=== PATIENT | male | born 1970 | race Caucasian/White ===

== ENCOUNTER 2020-07-04 22:10 | Inpatient (IN) | payer SELFPAY ==
[~2020-07-04] VITALS: Ht 165.1 cm; Wt 96.3 kg
[2020-07-04] MEDS ORDERED: IBUPROFEN 600MG TABLET PO STA (22:47)
[2020-07-04] MEDS ORDERED: SODIUM CHLORIDE 0.9% 1,000 ML IV ONE (22:47)
[2020-07-04 23:16] LABS: CLARITY URINE CLEAR (CLEAR); COLOR URINE DARK YELLOW (YELLOW); KETONES URINE TRACE (NEGATIVE); LEUKOCYTE ESTERASE URINE TRACE (NEGATIVE); NITRITE URINE NEGATIVE (NEGATIVE); OCCULT BLOOD URINE NEGATIVE (NEGATIVE); PH URINE 7.5 (4.5-8.0); PROTEIN URINE 2+ (NEGATIVE); SPECIFIC GRAVITY URINE 1.029 (1.005-1.030)
[2020-07-04] MEDS ORDERED: PIPERACILLIN/TAZOBACTAM 3.375GM/50ML PREMIX IV NR (23:45)
[2020-07-04] MEDS ORDERED: VANCOMYCIN 1 G PREMIX 200 ML IV SCH (23:45)
[2020-07-05 00:47] LABS: BASOPHILS % 0.2 % (0.0-2.0); EOSINOPHILS % 0.3 % (0.0-5.0); HEMATOCRIT. 30.7 % (42.0-52.0); HEMOGLOBIN. 10.7 g/dL (14.0-18.0); LYMPHOCYTES % 8.2 % (20.0-50.0); MEAN CORPUSCULAR VOLUME 91.8 fL (80.0-94.0); MEAN PLATELET VOLUME 7.9 fl (7.4-10.4); MONOCYTES % 11.4 % (2.0-8.0); NEUTROPHILS % 79.9 % (40.0-76.0); PLATELET 147 x1000/uL (130-400); RED BLOOD CELL COUNT 3.34 mill/uL (4.7-6.1); RED CELL DISTRIBUTION WIDTH 14.5 % (11.6-14.6)
[2020-07-05 00:56] LABS: PROTHROMBIN TIME 10.1 sec (9.6-11.0)
[2020-07-05 00:57] LABS: CHLORIDE 99 mEq/L (98-107)
[2020-07-05] MEDS ORDERED: POTASSIUM CHLORIDE INJ 40 MEQ in DEXT 5% WATER 250 ML IV ONE (01:30)
[2020-07-05] MEDS ORDERED: SODIUM CHLORIDE 0.9% 1,000 ML IV ONE (02:30)
[2020-07-05] MEDS ORDERED: ONDANSETRON HCL 4MG/2ML INJ IV ONE (02:30)
[2020-07-05] MEDS ORDERED: MORPHINE SULFATE 4 MG/ML CPJ (NOT FOR IM USE) IV ONE (02:30)
[2020-07-05 06:37] VITALS: BP_SYST 120
[2020-07-05 06:45] VITALS: BP 120/90
[2020-07-05] MEDS ORDERED: MORPHINE SULFATE 2 MG/ML CPJ (NOT FOR IM USE) IV PRN (08:45)
[2020-07-05] MEDS ORDERED: CLONIDINE 0.1MG TABLET PO PRN (08:45)
[2020-07-05] MEDS ORDERED: DIPHENHYDRAMINE 50MG/ML VIAL IV PRN (08:45)
[2020-07-05] MEDS ORDERED: PIPERACILLIN/TAZ 3.375G PREMIX 50 ML IV SCH (08:45)
[2020-07-05] MEDS ORDERED: ONDANSETRON HCL 4MG/2ML INJ IV PRN (08:45)
[2020-07-05] MEDS ORDERED: DEXTROSE 50% WATER 50ML SYRINGE IV PRN (09:00)
[2020-07-05] MEDS ORDERED: CLINDAMYCIN 300 MG in DEXTROSE 5% WATER 50 ML IV SCH (09:00)
[2020-07-05] MEDS ORDERED: METRONIDAZOLE 500 MG PREMIX 100 ML IV SCH (09:15)
[2020-07-05 09:37] VITALS: BP 142/86
[2020-07-05 09:49] LABS: PHOSPHORUS 2.2 mg/dL (2.5-4.9)
[2020-07-05] MEDS: PIPERACILLIN/TAZOBACTAM 3.375 G in DEXT 5% WATER 100 ML IV SCH ×2 (10:00→17:27)
[2020-07-05] MEDS: SODIUM CHLORIDE 0.9% 1,000 ML IV SCH ×2 (10:21→20:59)
[2020-07-05] MEDS: BLOOD SUGAR DIAGNOSTIC STRIP TEST SCH ×3 (11:53→20:49)
[2020-07-05] MEDS: VANCOMYCIN 1500MG in DEXTROSE 5% WATER 250ML IV SCH (11:56)
[2020-07-05] MEDS: INSULIN LISPRO 100 UNITS/ML SUBCUT SCH ×3 (11:57→20:49)
[2020-07-05] MEDS: ACETAMINOPHEN 325MG TABLET PO PRN ×2 (11:57→23:03)
[2020-07-05 12:00] VITALS: BP 132/79
[2020-07-05] MEDS: METRONIDAZOLE 500 MG PREMIX 100 ML IV SCH ×2 (14:00→21:01)
[2020-07-05] MEDS: CLINDAMYCIN 300 MG in DEXTROSE 5% WATER 50 ML IV SCH ×2 (14:00→21:01)
[2020-07-05 16:00] VITALS: BP 144/85
[2020-07-05 20:00] VITALS: BP 139/79
[2020-07-06] VITALS (7 sets, daily range): BP systolic 117–158; BP diastolic 59–92
[2020-07-06] MEDS: VANCOMYCIN 1500MG in DEXTROSE 5% WATER 250ML IV SCH ×2 (00:19→11:51)
[2020-07-06] MEDS: PIPERACILLIN/TAZOBACTAM 3.375 G in DEXT 5% WATER 100 ML IV SCH ×3 (02:17→18:13)
[2020-07-06] MEDS: ACETAMINOPHEN 325MG TABLET PO PRN ×2 (03:05→22:03)
[2020-07-06] MEDS: CLINDAMYCIN 300 MG in DEXTROSE 5% WATER 50 ML IV SCH ×3 (05:00→22:46)
[2020-07-06] MEDS: METRONIDAZOLE 500 MG PREMIX 100 ML IV SCH ×3 (05:46→21:33)
[2020-07-06 06:15] LABS: BASOPHILS % 0.2 % (0.0-2.0); EOSINOPHILS % 0.5 % (0.0-5.0); HEMATOCRIT. 31.1 % (42.0-52.0); HEMOGLOBIN. 10.5 g/dL (14.0-18.0); LYMPHOCYTES % 10.2 % (20.0-50.0); MEAN CORPUSCULAR HEMOGLOBIN 31.2 pg (28.0-32.0); MEAN PLATELET VOLUME 7.4 fl (7.4-10.4); MONOCYTES % 14.2 % (2.0-8.0); NEUTROPHILS % 74.9 % (40.0-76.0); PLATELET 207 x1000/uL (130-400); RED BLOOD CELL COUNT 3.37 mill/uL (4.7-6.1); RED CELL DISTRIBUTION WIDTH 14.6 % (11.6-14.6)
[2020-07-06 06:39] LABS: CHLORIDE 103 mEq/L (98-107)
[2020-07-06 06:48] LABS: LDL CHOLESTEROL 155 mg/dL (5-100)
[2020-07-06 06:49] LABS: HDL CHOLESTEROL 40 mg/dL (40-59)
[2020-07-06] MEDS: BLOOD SUGAR DIAGNOSTIC STRIP TEST SCH ×4 (06:55→21:26)
[2020-07-06] MEDS: INSULIN LISPRO 100 UNITS/ML SUBCUT SCH ×4 (07:24→21:33)
[2020-07-06] MEDS: SODIUM CHLORIDE 0.9% 1,000 ML IV SCH (12:41)
[2020-07-06] MEDS ORDERED: POTASSIUM CHLORIDE 20MEQ TABLET SR PO NR (15:39)
[2020-07-06] MEDS ORDERED: POTASSIUM CHLORIDE INJ 40 MEQ in DEXT 5% WATER 500 ML IV NR (17:30)
[2020-07-07] VITALS: BP 120/70
[2020-07-07] MEDS: VANCOMYCIN 1500MG in DEXTROSE 5% WATER 250ML IV SCH ×2 (00:11→12:00)
[2020-07-07] MEDS: SODIUM CHLORIDE 0.9% 1,000 ML IV SCH ×2 (00:33→14:42)
[2020-07-07] MEDS: PIPERACILLIN/TAZOBACTAM 3.375 G in DEXT 5% WATER 100 ML IV SCH ×3 (01:48→18:00)
[2020-07-07] MEDS: METRONIDAZOLE 500 MG PREMIX 100 ML IV SCH ×2 (05:25→14:00)
[2020-07-07] MEDS: CLINDAMYCIN 300 MG in DEXTROSE 5% WATER 50 ML IV SCH ×2 (05:27→14:42)
[2020-07-07] MEDS: BLOOD SUGAR DIAGNOSTIC STRIP TEST SCH ×4 (06:49→21:19)
[2020-07-07 07:31] LABS: HEMATOCRIT. 33.2 % (42.0-52.0); HEMOGLOBIN. 11.3 g/dL (14.0-18.0); MEAN CORPUSCULAR HEMOGLOBIN 31.5 pg (28.0-32.0); MEAN CORPUSCULAR VOLUME 92.6 fL (80.0-94.0); MEAN PLATELET VOLUME 7.2 fl (7.4-10.4); PLATELET 321 x1000/uL (130-400); RED BLOOD CELL COUNT 3.59 mill/uL (4.7-6.1); RED CELL DISTRIBUTION WIDTH 14.9 % (11.6-14.6)
[2020-07-07] MEDS: INSULIN LISPRO 100 UNITS/ML SUBCUT SCH ×4 (07:50→21:35)
[2020-07-07 08:00] VITALS: BP 137/85
[2020-07-07 08:30] LABS: CHLORIDE 105 mEq/L (98-107)
[2020-07-07] MEDS ORDERED: GENTAMICIN SULF 40MG/ML 2ML VIAL ONE (14:18)
[2020-07-07] MEDS ORDERED: BACITRACIN 50,000 UNITS/VIAL ONE (14:19)
[2020-07-07 16:13] VITALS: BP 120/75
[2020-07-07] MEDS ORDERED: MIDAZOLAM HCL 2 MG/2 ML VIAL ONE (16:19)
[2020-07-07] MEDS ORDERED: PROPOFOL 200MG/20ML VIAL IV ONE ×2 (16:19→16:53)
[2020-07-07] MEDS ORDERED: FENTANYL CITRATE/PF 50MCG/ML 2ML VIAL ONE ×2 (16:19→16:53)
[2020-07-07] MEDS ORDERED: ONDANSETRON HCL 4MG/2ML INJ ONE (16:52)
[2020-07-07] MEDS ORDERED: DEXAMETHASONE 4MG/ML 1ML VIAL ONE (16:52)
[2020-07-07] MEDS ORDERED: LABETALOL 5MG/ML SYR 20 MG/4 ML SYRINGE IV PRN (17:15)
[2020-07-07] MEDS ORDERED: ONDANSETRON HCL 4MG/2ML INJ IV PRN (17:15)
[2020-07-07] MEDS ORDERED: MEPERIDINE HCL/PF 25MG/ML CPJ IV PRN (17:15)
[2020-07-07] MEDS: HYDROMORPHONE HCL/PF 2MG/ML CPJ IV PRN ×2 (17:38→17:49)
[2020-07-07 20:00] VITALS: BP 125/80
[2020-07-07 21:51] LABS: PLATELET ESTIMATE NORMAL
[2020-07-08] VITALS: BP 111/60
[2020-07-08] MEDS: VANCOMYCIN 1500MG in DEXTROSE 5% WATER 250ML IV SCH ×2 (00:55→13:54)
[2020-07-08] MEDS: PIPERACILLIN/TAZOBACTAM 3.375 G in DEXT 5% WATER 100 ML IV SCH ×3 (01:28→18:28)
[2020-07-08] MEDS: SODIUM CHLORIDE 0.9% 1,000 ML IV SCH ×2 (02:33→16:33)
[2020-07-08 04:00] VITALS: BP 128/87
[2020-07-08 04:12] LABS: NEISSERIA GONORRHOEAE NAA Negative (Negative)
[2020-07-08 06:33] LABS: HEMATOCRIT. 34.3 % (42.0-52.0); HEMOGLOBIN. 11.4 g/dL (14.0-18.0); MEAN CORPUSCULAR HEMOGLOBIN 31.1 pg (28.0-32.0); MEAN CORPUSCULAR VOLUME 93.6 fL (80.0-94.0); PLATELET 467 x1000/uL (130-400); RED BLOOD CELL COUNT 3.66 mill/uL (4.7-6.1); RED CELL DISTRIBUTION WIDTH 14.8 % (11.6-14.6)
[2020-07-08 06:48] LABS: CHLORIDE 103 mEq/L (98-107)
[2020-07-08 08:00] VITALS: BP 130/83
[2020-07-08] MEDS: BLOOD SUGAR DIAGNOSTIC STRIP TEST SCH ×4 (08:15→21:00)
[2020-07-08] MEDS: INSULIN LISPRO 100 UNITS/ML SUBCUT SCH ×4 (09:14→21:00)
[2020-07-08 12:00] VITALS: BP 104/76
[2020-07-08 16:00] VITALS: BP 117/71
[2020-07-08 18:19] LABS: PLATELET ESTIMATE SLIGHTLY INCREASED
[2020-07-08 20:00] VITALS: BP 145/89
[2020-07-09] VITALS: BP 120/80
[2020-07-09] MEDS: VANCOMYCIN 1500MG in DEXTROSE 5% WATER 250ML IV SCH (00:19)
[2020-07-09] MEDS: SODIUM CHLORIDE 0.9% 1,000 ML IV SCH ×2 (00:19→21:01)
[2020-07-09] MEDS: PIPERACILLIN/TAZOBACTAM 3.375 G in DEXT 5% WATER 100 ML IV SCH ×3 (01:02→18:28)
[2020-07-09] MEDS: ACETAMINOPHEN 325MG TABLET PO PRN ×3 (01:02→21:01)
[2020-07-09 04:00] VITALS: BP 118/75
[2020-07-09 06:14] LABS: CHLORIDE 106 mEq/L (98-107)
[2020-07-09] MEDS: BLOOD SUGAR DIAGNOSTIC STRIP TEST SCH ×4 (06:29→21:00)
[2020-07-09] MEDS: INSULIN LISPRO 100 UNITS/ML SUBCUT SCH ×4 (06:29→21:00)
[2020-07-09 06:52] LABS: HEMATOCRIT. 32.5 % (42.0-52.0); HEMOGLOBIN. 10.8 g/dL (14.0-18.0); MEAN CORPUSCULAR HEMOGLOBIN 31.1 pg (28.0-32.0); MEAN CORPUSCULAR VOLUME 93.7 fL (80.0-94.0); MEAN PLATELET VOLUME 6.9 fl (7.4-10.4); PLATELET 537 x1000/uL (130-400); RED BLOOD CELL COUNT 3.47 mill/uL (4.7-6.1)
[2020-07-09 08:00] VITALS: BP 124/80
[2020-07-09] MEDS: SODIUM HYPOCHLORITE 0.125% 473ML SOLUTION TOP SCH (11:39)
[2020-07-09 12:00] VITALS: BP 127/86
[2020-07-09 16:00] VITALS: BP 125/83
[2020-07-09 18:13] LABS: PLATELET ESTIMATE INCREASED
[2020-07-09 20:00] VITALS: BP 145/84
[2020-07-10] VITALS: BP 135/70
[2020-07-10] MEDS: PIPERACILLIN/TAZOBACTAM 3.375 G in DEXT 5% WATER 100 ML IV SCH (01:12)
[2020-07-10 04:00] VITALS: BP 155/80
[2020-07-10] MEDS: ACETAMINOPHEN 325MG TABLET PO PRN ×2 (04:04→19:27)
[2020-07-10 06:30] LABS: HEMOGLOBIN. 11.4 g/dL (14.0-18.0); MEAN CORPUSCULAR HEMOGLOBIN 31.9 pg (28.0-32.0); MEAN CORPUSCULAR VOLUME 92.8 fL (80.0-94.0); MEAN PLATELET VOLUME 6.7 fl (7.4-10.4); PLATELET 624 x1000/uL (130-400); RED BLOOD CELL COUNT 3.56 mill/uL (4.7-6.1); RED CELL DISTRIBUTION WIDTH 14.9 % (11.6-14.6)
[2020-07-10] MEDS: INSULIN LISPRO 100 UNITS/ML SUBCUT SCH ×4 (06:38→21:00)
[2020-07-10] MEDS: BLOOD SUGAR DIAGNOSTIC STRIP TEST SCH ×4 (06:38→21:00)
[2020-07-10] MEDS ORDERED: PROPOFOL 200MG/20ML VIAL IV ONE (07:11)
[2020-07-10 07:19] LABS: CHLORIDE 104 mEq/L (98-107)
[2020-07-10 08:00] VITALS: BP 142/90
[2020-07-10] MEDS: SODIUM CHLORIDE 0.9% 1,000 ML IV SCH (08:24)
[2020-07-10] MEDS: SODIUM HYPOCHLORITE 0.125% 473ML SOLUTION TOP SCH (08:24)
[2020-07-10 11:39] LABS: PLATELET ESTIMATE INCREASED
[2020-07-10 12:00] VITALS: BP 144/96
[2020-07-10] MEDS: CEFTRIAXONE 2 G in DEXTROSE 5% WATER 50 ML IV SCH (14:40)
[2020-07-10 16:00] VITALS: BP 144/94
[2020-07-10 20:00] VITALS: BP 128/92
[2020-07-11] VITALS: BP 129/91
[2020-07-11] MEDS: SODIUM CHLORIDE 0.9% 1,000 ML IV SCH ×2 (00:42→11:21)
[2020-07-11] MEDS: ACETAMINOPHEN 325MG TABLET PO PRN (00:49)
[2020-07-11 04:00] VITALS: BP_SYST 126; BP_SYST 134; BP_DIAS 91; BP_DIAS 94
[2020-07-11] MEDS: BLOOD SUGAR DIAGNOSTIC STRIP TEST SCH ×3 (06:32→17:55)
[2020-07-11] MEDS: INSULIN LISPRO 100 UNITS/ML SUBCUT SCH ×3 (06:32→17:50)
[2020-07-11 07:12] LABS: HEMATOCRIT. 36.5 % (42.0-52.0); HEMOGLOBIN. 12.1 g/dL (14.0-18.0); MEAN CORPUSCULAR HEMOGLOBIN 30.7 pg (28.0-32.0); MEAN CORPUSCULAR VOLUME 92.3 fL (80.0-94.0); MEAN PLATELET VOLUME 6.6 fl (7.4-10.4); PLATELET 710 x1000/uL (130-400); RED BLOOD CELL COUNT 3.95 mill/uL (4.7-6.1); RED CELL DISTRIBUTION WIDTH 15.2 % (11.6-14.6)
[2020-07-11 07:34] LABS: CHLORIDE 105 mEq/L (98-107)
[2020-07-11 08:00] VITALS: BP 136/99
[2020-07-11] MEDS: SODIUM HYPOCHLORITE 0.125% 473ML SOLUTION TOP SCH (10:03)
[2020-07-11 11:20] LABS: PLATELET ESTIMATE MARKEDLY INCREASED
[2020-07-11 12:00] VITALS: BP 127/70
[2020-07-11 16:00] VITALS: BP 130/91
[2020-07-11] MEDS ORDERED: TOPUD PO (16:09)
[2020-07-11] MEDS ORDERED: ATOR20TA65 MT (16:09)
[2020-07-11] MEDS ORDERED: CEPH-569 MT (16:09)
[2020-07-11] MEDS: CEFTRIAXONE 2 G in DEXTROSE 5% WATER 50 ML IV SCH (16:32)
[2020-07-11 16:48] VITALS: BP 20/130
== END 2020-07-11 18:50 | disposition home or self-care (01) | DRG 720 ==
LOC: ER 22:10 → 8WST 07-05 02:55 → EDBEDREQDT 07-05 02:58 → EDBEDREQ 07-05 02:58 → EDBEDREQSVC 07-05 02:58 → EDBEDREQTM 07-05 02:58 → ENRESERV 07-05 05:16 → 7WST 07-05 09:52 → 6WST 07-05 23:40
PROVIDERS: ADMIT Internal Medicine; ATTEND Internal Medicine
PROC: 3E1N38Z Irrigation of Male Reproductive using Irrigating Substance, Percutaneous Approach (ICD-10-PCS; principal; 2020-07-07)
DX: A41.9 Sepsis, unspecified organism (principal); E87.6 Hypokalemia; L03.317 Cellulitis of buttock; N49.2 Inflammatory disorders of scrotum; N49.3 Fournier gangrene; E66.01 Morbid (severe) obesity due to excess calories; Z20.828 Contact with and (suspected) exposure to other viral communicable diseases; N50.89 Other specified disorders of the male genital organs; D64.9 Anemia, unspecified; R73.9 Hyperglycemia, unspecified; Z68.35 Body mass index [BMI] 35.0-35.9, adult; Z79.899 Other long term (current) drug therapy
CPT/HCPCS: 36415; 71045; 74176; 76870; 80048; 80053; 80061; 80202; 81003; 82010; 82553; 82962; 83036; 83605; 83735; 84100; 84145; 84443; 84484; 85025; 87070; 87075; 87077; 87186; 87491; 87591; 93005; 93970; 93976; 99291; J0696; J1100; J1170; J1580; J1815; J2250; J2270; J2405; J2543; J2704; J3010; J3370; J3480; J3490; J7030; J7060; U0003-CS